=== PATIENT | female | born 1980 ===

== ENCOUNTER 2018-08-17 23:47 | Emergency (ER) | payer OTHER ==
[2018-08-18 00:03] VITALS: RESP 20
[2018-08-18 00:40] LABS: HCG,QUALITATIVE URINE NEGATIVE (NEGATIVE)
[2018-08-18 00:40] LABS: BASO # 0.1 K/uL (0.0-0.2); BASO % 0.5 % (0.0-2.0); EOS # 0.5 K/uL (0.0-0.7); EOS % 3.5 % (0.0-4.0); LYMPH # 3.8 K/uL (1.0-4.3); LYMPH % 27.5 % (20.0-40.0); MEAN CELL VOLUME 86.8 fL (81.0-99.0); MEAN CORPUSCULAR HEMOGLOBIN 28.9 pg (27.0-31.0); MEAN CORPUSCULAR HGB CONC 33.2 g/dL (33.0-37.0); MEAN PLATELET VOLUME 9.1 fL (7.2-11.7); MONO # 0.4 K/uL (0.0-0.8); MONO % 3.1 % (0.0-10.0); NEUT % 65.4 % (50.0-75.0); NRBC % 0.1 % (0.0-2.0); RBC 4.86 Mil/uL (3.80-5.20); RED CELL DISTRIBUTION WIDTH 14.2 % (11.5-14.5); WHITE BLOOD COUNT 13.7 K/uL (4.8-10.8)
[2018-08-18 00:41] LABS: SQUAMOUS EPITHIAL 4 /hpf (0-5); URINE BILIRUBIN NEGATIVE (NEGATIVE); URINE BLOOD 2+ (NEGATIVE); URINE CLARITY Clear (Clear); URINE COLOR Yellow (YELLOW); URINE GLUCOSE (UA) NORMAL (Normal); URINE LEUKOCYTE ESTERASE NEG Leu/uL (Negative); URINE PROTEIN NEGATIVE (NEGATIVE); URINE UROBILINOGEN NORMAL mg/dL (0.2-1.0)
[2018-08-18] MEDS ORDERED: Aluminum Hydroxide/Magnesium Hydroxide Susp (30 mL) PO STA (00:47)
[2018-08-18] MEDS ORDERED: Sodium Chloride 0.9% 1,000 ML IV ONE (00:47)
[2018-08-18] MEDS ORDERED: Aluminum Hydroxide/Magnesium Hydroxide Susp (30 mL) ONE (00:54)
[2018-08-18] MEDS ORDERED: Sodium Chloride 0.9% 1,000 ML ONE (00:54)
[2018-08-18 00:58] LABS: ALB/GLOB RATIO 1.4 (1.0-2.1); ALBUMIN 4.4 g/dL (3.5-5.0); ALT/SGPT 80 U/L (9-52); AST/SGOT 89 U/L (14-36); BLOOD UREA NITROGEN 9 mg/dL (7-17); GFR NON-AFRICAN AMERICAN > 60; LIPASE 49 U/L (23-300)
[2018-08-18 01:58] VITALS: BP 117/64; PULSE 81; TEMP 98.1; O2SAT 99
--- NOTE | 2018-08-18 04:06 | C.PDOC ---
History Of Present Illness 37 y/o female pt with hx of gastritis presents to the ER c/o epigastric pain. Pt reports pain is sharp and radiating to the throat. Pt did not take any medications for the pain. Associated sx includes vomiting and mild nausea. Patient denies chest pain, shortness of breath, headache, fever, chills, cough, diarrhea, changes in bowel habits, dysuria, hematuria, frequency, flank pain, or vaginal discharge. Chief Complaint (Nursing): Abdominal Pain History Per: Patient History/Exam Limitations: no limitations Onset/Duration Of Symptoms: Days Current Symptoms Are (Timing): Still Present Past Medical History Reviewed: Historical Data, Nursing Documentation, Vital Signs Vital Signs: Last Vital Signs Temp 98.1 F 08/18/18 01:57 Pulse 81 08/18/18 01:57 Resp 20 08/18/18 01:57 BP 117/64 08/18/18 01:57 Pulse Ox 99 08/18/18 01:57 Family History: States: No Known Family Hx - Social History Hx Alcohol Use: No Hx Substance Use: No - Immunization History Hx Tetanus Toxoid Vaccination: No Hx Influenza Vaccination: No Hx Pneumococcal Vaccination: No Review Of Systems Except As Marked, All Systems Reviewed And Found Negative. Constitutional: Negative for: Fever, Chills ENT: Positive for: Throat Pain (radiated from epigastric pain ). Negative for: Nose Discharge Cardiovascular: Negative for: Chest Pain Respiratory: Negative for: Shortness of Breath Gastrointestinal: Positive for: Nausea, Vomiting, Abdominal Pain (epigastric pain; no flank pain ) Genitourinary: Negative for: Dysuria, Frequency, Hematuria, Vaginal Discharge, Vaginal Bleeding Musculoskeletal: Negative for: Other (changes in bowel habits ) Neurological: Negative for: Headache Physical Exam - Physical Exam Appears: Non-toxic, No Acute Distress Skin: Warm, Dry Head: Normacephalic Eye(s): bilateral: Normal Inspection, EOMI Nose: Normal Oral Mucosa: Moist Chest: Symmetrical Cardiovascular: Rhythm Regular Respiratory: Normal Breath Sounds Gastrointestinal/Abdominal: Soft, Tenderness (midl epigastric ), No Distention, No Guarding, No Rebound Back: No CVA Tenderness Neurological/Psych: Oriented x3, Normal Speech ED Course And Treatment - Laboratory Results Result Diagrams: 08/18/18 00:37 08/18/18 00:37 O2 Sat by Pulse Oximetry: 99 (RA) Pulse Ox Interpretation: Normal Medical Decision Making Medical Decision Making: Impression: abd pain plans: -- Chem labs -- blood work -- maalox -- Iv fluids -- pepcid -- zofran -- urine CX -- HCG -- UA Disposition - Disposition Referrals: Ernie Sharma, [Non-Staff] - Disposition: HOME/ ROUTINE Disposition Time: 01:05 Condition: IMPROVED Additional Instructions: DELMAR HENRY, thank you for letting us take care of you today. The emergency medical care you received today was directed at your acute symptoms. If you were prescribed any medication, please fill it and take as directed. It may take several days for your symptoms to resolve. Return to the Emergency Department if your symptoms worsen, do not improve, or if you have any other problems. Please contact your doctor or call one of the physicians/clinics you have been referred to that are listed on the Patient Visit Information form that is included in your discharge packet. Bring any paperwork you were given at discharge with you along with any medications you are taking to your follow up visit. Our treatment cannot replace ongoing medical care by a primary care provider outside of the emergency department. Thank you for allowing the [facility] team to be part of your care today. Follow up with your primary care doctor next week for re-evaluation and further management. DELMAR HENRY, gloria por dejarnos cuidar de usted hoy. La atencin mdica de emergencia que recibi hoy se dirigi a dane sntomas agudos. Si le recetaron algn medicamento, llnelo y tmelo segn las indicaciones. Los sntomas pueden tardar varios [place] en resolverse. Regrese al Departamento de Emergencias si dane sntomas empeoran, no mejoran o si tiene otros problemas. Comunquese con padgett mdico o llame a rose de los mdicos / clnicas a los que jimenez sido referido que figuran en el formulario de Informacin de visita al paciente que se incluye en padgett paquete de cleo. Lleve todos los documentos que le entregaron al momento del cleo junto con todos los medicamentos que est tomando para padgett visita de seguimiento. Nuestro tratamiento no puede reemplazar la atencin mdica continua por parte de un proveedor de atencin primaria fuera del departamento de emergencias. Gloria por permitir que el equipo de [facility] sea parte de padgett atencin hoy. Ann-Marie un seguimiento con padgett mdico de atencin primaria la prxima semana para garry reevaluacin y manejo adicional. Prescriptions: Famotidine [Pepcid] 20 mg PO BID #14 tab Ondansetron ODT [Zofran ODT] 8 mg PO Q8 PRN #20 odt PRN Reason: Nausea/Vomiting Instructions: [place] Diet, Gastritis (DC) Forms: Gen Discharge Inst UzbekNomanini (Uzbek) Print Language: INDONESIAN - Clinical Impression Clinical Impression: Gastritis - Scribe Statement The provider has reviewed the documentation as recorded by the Scribe [place] Do Provider Attestation: All medical record entries made by the Scribe were at my direction and persona lly dictated by me. I have reviewed the chart and agree that the record accurately reflects my personal performance of the history, physical exam, medical decision making, and the department course for this patient. I have also personally directed, reviewed, and agree with the discharge instructions and disposition.
== END 2018-08-18 02:00 | disposition home or self-care (01) ==
LOC: C.ER 23:47
DX: K29.70 Gastritis, unspecified, without bleeding (principal)